=== PATIENT | male | born 1990 | race African-American/Black ===

== ENCOUNTER 2017-05-31 21:38 | Emergency (ER) | payer MEDICAID ==
[~2017-05-31] VITALS: Ht 188 cm; Wt 77.0 kg
[~2017-05-31 21:38] MED LIST: GABA-529 PO; OXYC-100 PO
[2017-05-31] MEDS ORDERED: SODIUM CHLORIDE 0.9% 1,000 ML IV ONE (23:03)
[2017-05-31] MEDS ORDERED: OXYCODONE HCL/ACETAMINOPHEN 5/325MG TABLET PO ONE (23:15)
[2017-05-31] MEDS ORDERED: KETOROLAC 30MG/ML VIAL IV ONE (23:15)
[2017-06-01 01:42] LABS: CLARITY URINE CLOUDY (CLEAR); COLOR URINE YELLOW (YELLOW); GLUCOSE URINE NEGATIVE (NEGATIVE); KETONES URINE NEGATIVE (NEGATIVE); LEUKOCYTE ESTERASE URINE 2+ (NEGATIVE); NITRITE URINE POSITIVE (NEGATIVE); OCCULT BLOOD URINE NEGATIVE (NEGATIVE); PROTEIN URINE TRACE (NEGATIVE); SPECIFIC GRAVITY URINE 1.027 (1.005-1.030)
[2017-06-01 02:05] LABS: *AMPHETAMINES SCREEN URINE NEGATIVE (NEGATIVE); *BARBITURATES SCREEN URINE NEGATIVE (NEGATIVE); *BENZODIAZEPINES SCREEN URINE NEGATIVE (NEGATIVE); *COCAINE SCREEN URINE NEGATIVE (NEGATIVE); CANNABINOID URINE SCREEN PRESUMTIVE POSITIVE (NEGATIVE); METHADONE URINE SCREEN NEGATIVE (NEGATIVE); OPIATES URINE SCREEN PRESUMTIVE POSITIVE (NEGATIVE); PHENCYCLIDINE URINE SCREEN NEGATIVE (NEGATIVE)
[2017-06-01 10:35] VITALS: BP 116/52
== END 2017-06-01 10:56 | disposition home or self-care (01) ==
LOC: ER 21:38
DX: S39.92XA Unspecified injury of lower back, initial encounter (principal); L89.103 Pressure ulcer of unspecified part of back, stage 3; W18.30XA Fall on same level, unspecified, initial encounter; Y93.89 Activity, other specified; Y92.89 Other specified places as the place of occurrence of the external cause; Y99.8 Other external cause status
CPT/HCPCS: 72100; 80305; 81001; 96361; 96374; 99285; J1885; J7030

== ENCOUNTER 2025-07-17 08:59 | Emergency (ER) | payer MEDICAID ==
[~2025-07-17] VITALS: Ht 188 cm; Wt 200.0 kg
[2025-07-17 09:12] VITALS: O2SAT 98
[2025-07-17] MEDS: CEFTRIAXONE SODIUM 500MG VIAL IM ONE (09:45)
[2025-07-17 09:55] LABS: CLARITY URINE TURBID (CLEAR); COLOR URINE ORANGE (YELLOW); GLUCOSE URINE NEGATIVE (NEGATIVE); KETONES URINE NEGATIVE (NEGATIVE); LEUKOCYTE ESTERASE URINE 3+ (NEGATIVE); NITRITE URINE POSITIVE (NEGATIVE); OCCULT BLOOD URINE 3+ (NEGATIVE); PH URINE 7.5 (4.5-8.0); PROTEIN URINE 2+ (NEGATIVE); SPECIFIC GRAVITY URINE 1.016 (1.005-1.030); UROBILINOGEN URINE 1.0 E.U./dL (0.2-1.0)
[2025-07-17 10:00] LABS: BASOPHILS % 1.5 % (0.0-2.0); EOSINOPHILS % 5.6 % (0.0-5.0); HEMATOCRIT. 46.1 % (42.0-52.0); HEMOGLOBIN. 14.8 g/dL (14.0-18.0); LYMPHOCYTES % 29.4 % (20.0-50.0); MEAN PLATELET VOLUME 7.5 fl (7.4-10.4); MONOCYTES % 11.0 % (2.0-8.0); NEUTROPHILS % 52.5 % (40.0-76.0); PLATELET 196 x1000/uL (130-400); RED BLOOD CELL COUNT 5.18 mill/uL (4.7-6.1); RED CELL DISTRIBUTION WIDTH 14.3 % (11.6-14.6)
[2025-07-17 10:22] LABS: CREATININE 0.7 mg/dL (0.6-1.3); UREA NITROGEN BLOOD 10 mg/dL (9-23)
[2025-07-17 10:31] LABS: BACTERIA URINE 4+; SQUAMOUS EPITHELIAL CELL URINE NONE SEEN /lpf (RARE/1+)
[2025-07-17 10:32] LABS: RBC URINE TNTC /hpf (0-2); WBC URINE 50-100 /hpf (0-2)
[2025-07-17] MEDS ORDERED: DOXY100C5 MT (10:40)
[2025-07-17] MEDS ORDERED: CEFP200T14 MT (10:40)
[2025-07-17 11:13] VITALS: BP 162/98; PULSE 82; RESP 18; TEMP 36.6; O2SAT 98
[2025-07-20 04:09] LABS: CHLAMYDIA TRACHOMATIS NAA Negative (Negative); NEISSERIA GONORRHOEAE NAA Negative (Negative)
== END 2025-07-17 11:14 | disposition home or self-care (01) ==
LOC: ER 08:59
DX: N39.0 Urinary tract infection, site not specified (principal); Z11.3 Encounter for screening for infections with a predominantly sexual mode of transmission; G82.20 Paraplegia, unspecified; F10.90 Alcohol use, unspecified, uncomplicated; Z79.899 Other long term (current) drug therapy; Y90.9 Presence of alcohol in blood, level not specified
CPT/HCPCS: 87491; 87591; 80048; 81003; 85025; 86592; 87086; 87186; 87077; 36415; 96372; 99283; J0696; Z7610